=== PATIENT | female | born 1975 | race Caucasian/White ===

== ENCOUNTER 2017-07-04 06:43 | Emergency (ER) | payer BC ==
[~2017-07-04] VITALS: Ht 172.7 cm; Wt 89.5 kg
[~2017-07-04 06:43] MED LIST: BUPRTAB PO; IBUP-103 PO; LAMO150T32 PO; LAMO200T38 PO
[2017-07-04 06:45] VITALS: TEMP 37.2; Ht 172.7 cm; Wt 89.5 kg
[2017-07-04] MEDS ORDERED: ACETAMINOPHEN 500 MG TAB PO STA (06:56)
[2017-07-04] MEDS ORDERED: GI COCKTAIL PO STA (06:56)
[2017-07-04] MEDS ORDERED: FAMOTIDINE 20 MG TAB PO STA (06:56)
[2017-07-04] MEDS ORDERED: DEXAMETHASONE INJ 10 MG in SYRINGE 0 ML IM STA (06:56)
[2017-07-04] MEDS ORDERED: AMOXICILLIN 250 MG CAP PO STA (06:56)
--- NOTE | 2017-07-04 07:20 | EMERGENCY ROOM VISIT NOTE ---
History Report prepared by Jason: Amy Berry Under the Supervision of: Dr. Louie Merida M.D. First contact with patient: 06:49 Chief Complaint: SORETHROAT Stated Complaint: SEVERE SORE THROAT,SWELLING History of Present Illness The patient is a 42 year old female who presents to the Emergency Room with complaints of a persistent sore throat that began morning. She currently rates her discomfort as a 5/10 in severity. The patient states that she woke and started with a sore throat. She states that by the night time her throat was purple and she noticed she was having difficulty swallowing. The patient states that she began taking Benadryl and when she woke the next morning her sore throat was still present along with nasal congestion. The patient states that throughout the weekend she used Benadryl and Flonase, and notes that her symptoms were beginning to resolve. She states that this morning she woke vomiting and with indigestion. The patient states that she does have a possible allergy to wool and notes that on she had wool carpet installed. The patient denies any smoking history. She denies any recent sick contacts. The patient states that she has been taking Ibuprofen but states that her last dose was around 2200. She denies any history of PE. Source of History: patient Onset: morning Position: throat Symptom Intensity: 5/10 Quality: other (sore) Timing: other (persistent) Associated Symptoms: + vomiting Note: Associated Symptoms: nasal congestion Review of Systems See HPI for pertinent positives & negatives. A total of 10 systems reviewed and were otherwise negative. Past Medical & Surgical Medical Problems: (1) Bipolar depression Family History No pertinent family history stated. Social History Smoking Status: Never Smoker Drug Use: none Marital Status: Housing Status: lives with family Occupation Status: employed Current/Historical Medications Scheduled Amoxicillin (Amoxil), 500 MG PO TID Famotidine (Pepcid), 40 MG PO HS Lamotrigine (Lamictal), 200 MG PO BID Scheduled PRN Hydrocodone W/ Homatropine (Hycodan 5/1.5MG 5 Ml), 5 ML PO HS PRN for Cough Allergies Coded Allergies: Latex1 -Allergic Contact Dermititis (Verified Allergy, Unknown, RASH, 07/04) Physical Exam Vital Signs Date Time Temp Pulse Resp B/P (MAP) Pulse Ox O2 Delivery O2 Flow Rate FiO2 07/04/17 09:02 82 18 135/91 98 07/04/17 06:45 37.2 95 18 142/91 98 Room Air Physical Exam GENERAL: Patient is a healthy-appearing well-nourished female. HEAD: Normocephalic atraumatic EYES: Ocular movements intact pupils equal and react to light OROPHARYNX Mild erythema, mild injection along soft pallet. mucous membranes are moist no exudates present no edema present, able to swallow her own saliva, no evidence of Marcellus's Angina on exam. NECK: Supple no nuchal rigidity. CHEST: Good equal expansion LUNGS: Clear and equal to auscultation CARDIAC: Normal S1 and S2 ABDOMEN: Soft nontender no guarding BACK: No CVA tenderness EXTREMITIES: No pain upon palpation normal muscle strength in all groups no clubbing cyanosis or edema NEURO: Patient is following commands and answering questions appropriately. Alert and oriented x3 Cranial Nerves 2-12 grossly intact Medical Decision & Procedures ER Provider Diagnostic Interpretation: Radiology results as stated below per my review and radiologist interpretation: SOFT TISSUE NECK TECHNIQUE: AP and lateral soft tissue neck FINDINGS: Normal prevertebral soft tissues. No distention of the hypopharynx. The epiglottis is normal. IMPRESSION: Normal study. The above report was generated using voice recognition software. It may contain grammatical, syntax or spelling errors. Electronically signed by: Dinesh Calhoun M.D. 07/04/2017 8:39 AM Dictated Date/Time: 07/04/2017 8:26 AM CHEST ONE VIEW PORTABLE CLINICAL HISTORY: Pt c/o SOB dyspnea COMPARISON STUDY: 12/29/2013 FINDINGS: The bones soft tissues and hemidiaphragms are normal. The cardiomediastinal silhouette is normal. The lungs are clear. The pulmonary vasculature is normal. IMPRESSION: Negative chest. The above report was generated using voice recognition software. It may contain grammatical, syntax or spelling errors. Electronically signed by: Dinesh Calhoun M.D. 07/04/2017 8:24 AM Dictated Date/Time: 07/04/2017 8:23 AM Medications Administered Medications (Trade) Dose Ordered Sig/Sabrina Route Start Time Stop Time Status Last Admin Dose Admin Amoxicillin (Amoxil Cap) 500 mg NOW STAT PO 07/04/17 06:56 07/04/17 07:00 DC 07/04/17 07:37 500 MG Dexamethasone Sodium Phosphate 10 mg/Syringe 2.5 ml @ 1 mls/min NOW STAT IM 07/04/17 06:56 07/04/17 07:00 DC 07/04/17 07:48 1 MLS/MIN Acetaminophen (Tylenol Tab) 1,000 mg NOW STAT PO 07/04/17 06:56 07/04/17 07:00 DC 07/04/17 07:35 1,000 MG Miscellaneous Medication (Gi Cocktail) 24 ml NOW STAT PO 07/04/17 06:56 07/04/17 07:00 DC 07/04/17 07:37 24 ML Famotidine (Pepcid Tab) 20 mg NOW STAT PO 07/04/17 06:56 07/04/17 07:00 DC 07/04/17 07:35 20 MG ED Course 0650: Past medical records reviewed. The patient was evaluated in room B3B. A complete history and physical examination was performed. 0656: Ordered Pepcid Tab 20 mg PO, GI Cocktail 24 ml PO, Tylenol Tab 1000 mg PO , Dexamethasone Sodium Phosphate 10 mg/Syringe 2.5 ml @ 1 mls/min IM, Amoxicillin 500 mg PO. 0845: I reevaluated the patient and she is resting comfortably. I discussed the exam findings with her and I discussed the treatment plan. She verbalized complete understanding and agreement. She is ready to go home. Medical Decision Differential diagnosis: Etiologies such as viral syndrome, tonsillitis, streptococcal pharyngitis, mononucleosis, peritonsillar abscess, retropharyngeal abscess, otitis, pneumonia , influenza, as well as others were entertained. This is a 42-year-old female who presents to the emergency department complaining of severe throat pain. I will note that the patient is able swallow her own saliva. She was thoroughly on amoxicillin in the emergency department over strep test this point is negative. Chest x-ray and neck x-rays do not show any acute evidence of process. Patient was given a GI cocktail Pepcid and Carafate and given a Decadron shot. Repeat examination revealed improvement patient's symptoms. The patient is going to try amoxicillin Hycodan and Pepcid at home. She will return if her symptoms worsen or she is unable to swallow her own secretions. Patient was in agreement with the treatment plan. Medication Reconcilliation Current Medication List: was personally reviewed by me Blood Pressure Screening Patient's blood pressure: Elevated blood pressure Blood pressure disposition: Referred to PCP Impression Primary Impression: Pharyngitis Scribe Attestation The scribe's documentation has been prepared under my direction and personally reviewed by me in its entirety. I confirm that the note above accurately reflects all work, treatment, procedures, and medical decision making performed by me. Departure Information Dispostion Home / Self-Care Prescriptions Famotidine (Pepcid) 40 Mg Tab 40 MG PO HS for 30 Days, #30 TAB Prov: Louie Merida MD 07/04/17 Hydrocodone W/ Homatropine (HYCODAN 5/1.5MG 5 ML) 1 Syp Syp 5 ML PO HS Y for Cough, #120 ML Prov: Louie Merida MD 07/04/17 Amoxicillin (AMOXIL) 500 Mg Cap 500 MG PO TID, #30 CAP Prov: Louie Merida MD 07/04/17 Referrals Rossy Bailon M.D. (MEDICAL) (PCP) Forms HOME CARE DOCUMENTATION FORM, IMPORTANT VISIT INFORMATION, School Instructions, Work Instructions Patient Instructions ED Pharyngitis Viral Report Pending, My [facility] Additional Instructions You were found to have an elevated blood pressure today (>120 sytolic or >90 diastolic). Per medicare guidelines, you need to follow up with this blood pressure screening with your Primary Care Physician (PCP). For a new PCP call [phone]. You received narcotic or benzodiazepene medication while in the emergency room today. This is an addictive medication that may cause drowziness as well as constipation. Do not drive, operate heavy machinery, or drink alcohol under the influence of this medication. Take 1000 mg Tylenol every 6 hours Take Hycodan for breakthrough pain You have been examined and treated today on an emergency basis only. This is not a substitute for, or an effort to provide, complete comprehensive medical care. It is impossible to recognize and treat all injuries or illnesses in a single emergency department visit. It is therefore important that you follow up closely with Dr Bailon. Call as soon as possible for an appointment. Thank you for your time and consideration. I look forward to speaking with you again soon. Please don't hesitate to call us if you have any questions. Problem Qualifiers Primary Impression: Pharyngitis Pharyngitis/tonsillitis etiology: unspecified etiology Qualified Codes: J02.9 - Acute pharyngitis, unspecified
[2017-07-04] MEDS ORDERED: LIDOCAINE HCL 2% VISC SOLN 20 ML UDC ONE (07:26)
[2017-07-04] MEDS ORDERED: ALUMINUM/MAGNESIUM SUSP 30 ML UDC ONE (07:26)
[2017-07-04] MEDS ORDERED: DEXAMETHASONE **PF** INJ 10 MG/ML VIAL ONE (07:41)
--- NOTE | 2017-07-04 08:25 | DIAGNOSTIC IMAGING REPORT ---
CHEST ONE VIEW PORTABLE CLINICAL HISTORY: Pt c/o SOB dyspnea COMPARISON STUDY: 12/29/2013 FINDINGS: The bones soft tissues and hemidiaphragms are normal. The cardiomediastinal silhouette is normal. The lungs are clear. The pulmonary vasculature is normal. IMPRESSION: Negative chest. The above report was generated using voice recognition software. It may contain grammatical, syntax or spelling errors. Electronically signed by: Dinesh Calhoun M.D. 07/04/2017 8:24 AM Dictated Date/Time: 07/04/2017 8:23 AM
--- NOTE | 2017-07-04 08:40 | DIAGNOSTIC IMAGING REPORT ---
SOFT TISSUE NECK TECHNIQUE: AP and lateral soft tissue neck FINDINGS: Normal prevertebral soft tissues. No distention of the hypopharynx. The epiglottis is normal. IMPRESSION: Normal study. The above report was generated using voice recognition software. It may contain grammatical, syntax or spelling errors. Electronically signed by: Dinesh Calhoun M.D. 07/04/2017 8:39 AM Dictated Date/Time: 07/04/2017 8:26 AM
[2017-07-04] MEDS ORDERED: HYDR5SYP11 PO (08:45)
[2017-07-04] MEDS ORDERED: AMOX500C3 PO (08:45)
[2017-07-04] MEDS ORDERED: FAMO40TA6 PO (08:45)
[2017-07-04 09:02] VITALS: BP 135/91; PULSE 82; O2SAT 98
== END 2017-07-04 09:05 | disposition home or self-care (01) ==
LOC: C.EDB 06:43
DX: J02.9 Acute pharyngitis, unspecified (principal); R03.0 Elevated blood-pressure reading, without diagnosis of hypertension